=== PATIENT | female | born 1970 | race Caucasian/White ===

== ENCOUNTER 2019-08-28 14:19 | Emergency (ER) | payer OTHER ==
--- NOTE | 2019-08-28 14:52 | ED Physician Documentation ---
PD HPI LOWER EXT INJURY - Stated complaint Stated Complaint: RT FOOT INJ - Chief complaint Chief Complaint: Ext Problem - History obtained from History obtained from: Patient - History of Present Illness PD HPI LOW EXT INJURY LOCATION: Right, Foot Type of injury: Crush (Deck board) Where injury occurred: Home Timing - onset: How many weeks ago (2) Timing - duration: Weeks (2) Timing - details: Abrupt onset Pain level max: 5 Pain level now: 1 Improved by: Rest Worsened by: Moving, Palpating Associated symptoms: Numbness (She states that the area of the bruise feels numb.), Discolored (Bruising). No: Weakness, Tingling, Swelling Contributing factors: No: Anticoagulated Recently seen: Not recently seen Review of Systems Constitutional: denies: Fever Musculoskeletal: denies: Neck pain, Back pain Neurologic: denies: Head injury PD PAST MEDICAL HISTORY - Past Medical History Past Medical History: No - Past Surgical History Past Surgical History: No - Present Medications Home Medications: Ambulatory Orders Medication Instructions Recorded Confirmed Fluticasone [Flonase] 1 puffs INH DAILY 09/11/15 09/11/15 Loratadine [Claritin] 10 mg PO DAILY 09/11/15 09/11/15 - Allergies Allergies/Adverse Reactions: Allergies Allergy/AdvReac Type Severity Reaction Status Date / Time No Known Drug Allergies Allergy Verified 09/11/15 19:43 - Social History Does the pt smoke?: No Smoking Status: Never smoker Does the pt drink ETOH?: No Does the pt have substance abuse?: No - Immunizations Immunizations are current?: Yes PD ED PE NORMAL - Vitals Vital signs reviewed: Yes - General General: Alert and oriented X 3, No acute distress, Well developed/nourished - Derm Derm: Warm and dry - Extremities Extremities: Other (Mild ecchymosis in between the first and second MTP joints on the dorsum of the right foot. No tenderness over the entirety of the foot. No deformity. Neurovascularly intact. There is some pain with active range of motion of the great toe. Mild pain with passive range of motion of the toes.) - Neuro Neuro: Alert and oriented X 3 - Psych Psych: Normal mood, Normal affect Results - Vitals Vitals: Vital Signs - 24 hr 08/28/19 14:25 Temperature 36 C L Heart Rate 105 H Respiratory 18 Rate Blood Pressure 167/87 H O2 Saturation 100 Oxygen O2 Source Room air - Rads (name of study) Right foot x-ray Radiology: Prelim report reviewed, EMP read contemporaneously, See rad report (Normal x-ray) PD MEDICAL DECISION MAKING - ED course Complexity details: reviewed results, re-evaluated patient, considered differential, d/w patient ED course: Patient with a contusion of the foot. Normal x-ray. No evidence of fractures. Ambulating without difficulty. We will have her follow-up with her doctor as needed for further care. Patient counseled regarding signs and symptoms for which I believe and urgent re-evaluation would be necessary. Patient with good understanding of and agreement to plan and is comfortable going home at this time This document was made in part using voice recognition software. While efforts are made to proofread this document, sound alike and grammatical errors may occur. Departure - Departure Disposition: 01 Home, Self Care Clinical Impression: Foot contusion Qualifiers: Encounter type: initial encounter Laterality: right Qualified Code(s): S90.31XA - Contusion of right foot, initial encounter Condition: Good Instructions: ED Contusion Foot Follow-Up: your,doctor as needed [Other] Comments: Your x-ray does not show any acute abnormalities today. Follow-up with your doctor for further care. Return if you worsen.
--- NOTE | 2019-08-28 15:18 | XRAY Report ---
Reason: R foot crush injury 2 weeks ago Procedure Date: 08/28/2019 Accession Number: [id number] / [id number] Procedure: XR - Foot 3 View RT CPT Code: Final Report FULL RESULT: EXAM: RIGHT FOOT RADIOGRAPHY EXAM DATE: 08/28/2019 02:54 PM. CLINICAL HISTORY: Right foot crush injury 2 weeks ago, bruising and swelling. COMPARISON: None. TECHNIQUE: 3 views. FINDINGS: Bones: Normal. No fractures or bone lesions. Joints: Normal. No subluxations. Soft Tissues: Normal. No soft tissue swelling. IMPRESSION: Normal foot radiography. No fracture identified. RADIA
[2019-08-28 15:40] VITALS: BP 135/78
== END 2019-08-28 15:40 | disposition home or self-care (01) ==
LOC: ED 14:19
DX: S90.31XA Contusion of right foot, initial encounter (principal); X58.XXXA Exposure to other specified factors, initial encounter
CPT/HCPCS: 99283; 99284

== ENCOUNTER 2020-03-23 10:58 | Outpatient (CLI) | payer OTHER ==
--- NOTE | 2020-03-26 13:22 | Mammography Report ---
BILATERAL DIGITAL SCREENING MAMMOGRAM 3D/2D: 03/23/2020 CLINICAL: Routine screening. Comparison is made to exams dated: 08/30/2018 mammogram, 07/21/2017 ultrasound, and 07/21/2017 mammogram - [facility]. The tissue of both breasts is heterogeneously dense. This may lower th e sensitivity of mammography. There is a benign cyst in the right breast. No significant masses, calcifications, or other findings are seen in either breast. There has been no significant interval change. IMPRESSION: BENIGN There is no mammographic evidence of malignancy. A 1 year screening mammogram is recommended. This exam was interpreted at Station ID: [id number]. NOTE: For mammograms, a report in lay terms will be sent to the patient. Approximately 15% of breast malignancies will not be visualized mammographically. In the management of a palpable breast mass, a negative mammogram must not discourage biopsy of a clinically suspicious lesion. Electronically Signed By: Abhijeet Daniels M.D. ar/penrad:03/23/2020 12:00:40 ACR BI-RADS Category 2: Benign Finding(s) 3342F PARENCHYMAL PATTERN: (D) - The breast(s) demonstrate(s) heterogeneously dense fibroglandular james frias. BI-RADS CATEGORY: (2) - 2 RECOMMENDATION: (ANNUAL) - Recommend routine annual screening mammography. [id number] 1 year screening LATERALITY: (B)
== END 2020-03-23 10:59 | disposition home or self-care (01) ==
LOC: DI.N 10:58
PROVIDERS: ATTEND Obstetrics & Gynecology
DX: Z12.31 Encounter for screening mammogram for malignant neoplasm of breast (principal)

== ENCOUNTER 2021-02-06 19:52 | Emergency (ER) | payer OTHER ==
[2021-02-06 20:20] LABS: BASOPHILS # (AUTO) 0.1 10^3/uL (0.0-0.1); BASOPHILS % (AUTO) 0.9 %; EOSINOPHILS # (AUTO) 0.1 10^3/uL (0.0-0.7); EOSINOPHILS % (AUTO) 0.5 %; HGB - HEMOGLOBIN 13.4 g/dL (12.0-16.0); LYMPHOCYTES # (AUTO) 2.3 10^3/uL (1.5-3.5); LYMPHOCYTES % (AUTO) 19.9 %; MEAN CORPUSCULAR HEMOGLOBIN 29.1 pg (27.0-31.0); MEAN CORPUSCULAR HGB CONC 32.7 g/dL (32.0-36.0); MEAN CORPUSCULAR VOLUME 88.9 fL (81.0-99.0); MEAN PLATELET VOLUME 9.7 fL (7.9-10.8); MONOCYTES # (AUTO) 1.2 10^3/uL (0.0-1.0); MONOCYTES % (AUTO) 10.6 %; NEUTROPHILS # (AUTO) 7.9 10^3/uL (1.5-6.6); NEUTROPHILS % (AUTO) 67.8 %; PLT - PLATELET COUNT 411 10^3/uL (130-450); RED BLOOD COUNT 4.61 10^6/uL (4.20-5.40); RED CELL DISTRIBUTION WIDTH 11.9 % (12.0-15.0); WHITE BLOOD COUNT 11.7 x10^3/uL (4.8-10.8)
[2021-02-06 20:28] LABS: BILIRUBIN,URINE NEGATIVE (NEGATIVE); GLUCOSE, URINE (UA) NEGATIVE (NEGATIVE); KETONES,URINE (UA) TRACE mg/dL (NEGATIVE); LEUKOCYTE ESTERASE, URINE NEGATIVE (NEGATIVE); NITRITE,URINE NEGATIVE (NEGATIVE); OCCULT BLOOD,URINE NEGATIVE (NEGATIVE); PH,URINE 5.5 PH (5.0-7.5); PROTEIN,URINE NEGATIVE (NEGATIVE); UROBILINOGEN,URINE 0.2 (NORMAL) E.U./dL (NORMAL)
[2021-02-06 20:30] LABS: CLARITY,URINE CLEAR (CLEAR)
[2021-02-06 20:31] LABS: HCG UR QUAL NEGATIVE
[2021-02-06 20:33] LABS: ALBUMIN 4.7 g/dL (3.2-5.5); ALBUMIN/GLOBULIN RATIO 1.3 (1.0-2.2); BILIRUBIN,TOTAL 1.5 mg/dL (0.2-1.0); CALCIUM 9.4 mg/dL (8.5-10.3); CREATININE 0.8 mg/dL (0.4-1.0); POTASSIUM 3.7 mmol/L (3.5-5.0); TOTAL PROTEIN 8.2 g/dL (6.7-8.2)
[2021-02-06] MEDS ORDERED: SODIUM CHLORIDE 0.9% 1,000 ML IV STA (20:51)
[2021-02-06] MEDS ORDERED: KETOROLAC 15 MG/ML VIAL IVP STA (20:51)
[2021-02-06] MEDS ORDERED: ONDANSETRON 4 MG/2 ML VIAL IVP STA (20:51)
[2021-02-06] MEDS ORDERED: IOVERSOL 320 100 ML VIAL IVP ONE ×2 (21:13→21:29)
--- NOTE | 2021-02-06 21:58 | CT Report ---
PROCEDURE: Abdomen/Pelvis W INDICATIONS: RLQ pain, no abd surgeries CONTRAST: IV CONTRAST: Optiray 320 ml: 100 PO CONTRAST: *NO PO CONTRAST TECHNIQUE: After the administration of IV contrast, 5 mm thick sections acquired from the diaphragms to the symp hysis. 5 mm thick coronal and sagittal reformats were acquired. For radiation dose reduction, the f ollowing was used: automated exposure control, adjustment of mA and/or kV according to patient size. COMPARISON: None. FINDINGS: Image quality: Excellent. ABDOMEN: Lung bases: Lung bases are clear. Heart size is normal. Solid organs: Liver and spleen are normal in size and enhancement. Gallbladder is within normal wallace its Biliary system is non dilated. Pancreas enhances normally. No adrenal nodules. Kidneys demons trate normal size and enhancement, without hydronephrosis. Peritoneum and bowel: Bowel loops demonstrate normal wall thickness and caliber. Mild stool noted i n the right colon. No free fluid or air. Appendix is not definitely visualized. No free fluid or free air identified adjacent to the cecum. Nodes and vessels: No retroperitoneal or mesenteric adenopathy by size criteria. Aorta and inferior vena cava are normal in size. Miscellaneous: No ventral hernias. PELVIS: Genitourinary: Bladder wall thickness is normal. 1.9 cm right adnexal cyst 2.2 cm fibroid in the ant erior uterus. Miscellaneous: No inguinal hernias or adenopathy. Bones: No suspicious bony lesions. No vertebral body compression fractures. IMPRESSION: 1. Appendix not definitely visualized. No secondary signs of appendicitis such as free fluid or infla mmatory changes noted adjacent to the cecum. 2. Moderate fecal loading involving the right colon. 3. 1.9 cm right adnexal cyst. Reviewed by: Radha Valles MD, PhD on 02/06/2021 9:57 PM PDT Approved by: Radha Valles MD, PhD on 02/06/2021 9:57 PM PDT Station ID: [id number]
[2021-02-06] MEDS ORDERED: MORPHINE 2 MG/ML CARPUJECT IVP STA (22:13)
--- NOTE | 2021-02-06 23:01 | ED Physician Documentation ---
History of Present Illness - Stated complaint Stated Complaint: RT SIDE ABD PX - Chief complaint Chief Complaint: Abd Pain - Additonal information Additional information: 50yF with psh tubal ligation, no other psh, p/w RLQ abd pain since yesterday, gradual onset, a/w nausea but no vomiting and 4 watery episodes of diarrhea. no blood. nonradiating, constant, worse with movement and deep breathing, better with motrin. denies fevers, urinary sx. Review of Systems Ten Systems: 10 systems reviewed and negative Constitutional: denies: Fever, Chills GI: reports: Abdominal Pain, Nausea, Diarrhea. denies: Vomiting : denies: Dysuria PD PAST MEDICAL HISTORY - Past Medical History Cardiovascular: None Respiratory: None Neuro: None Endocrine/Autoimmune: None GI: None TOP CUTTER: Other : None HEENT: None Psych: None Musculoskeletal: Scoliosis Derm: None Other Past Medical History: heavy menstrual flow + cbad cramps - Past Surgical History Past Surgical History: Yes /TOP CUTTER: Tubal ligation Derm: Skin cancer surgery - Present Medications Home Medications: Ambulatory Orders Medication Instructions Recorded Confirmed No Known Home Medications 02/06/21 02/06/21 - Allergies Allergies/Adverse Reactions: Allergies Allergy/AdvReac Type Severity Reaction Status Date / Time No Known Drug Allergies Allergy Verified 02/06/21 20:05 - Social History Does the pt smoke?: No Smoking Status: Never smoker Does the pt drink ETOH?: No Does the pt have substance abuse?: No - Immunizations Immunizations are current?: Yes - POLST Patient has POLST: No PD ED PE NORMAL - Vitals Vital signs reviewed: Yes - General General: Alert and oriented X 3, No acute distress, Well developed/nourished - HEENT HEENT: Atraumatic, PERRL, EOMI - Neck Neck: Supple, no meningeal sign - Cardiac Cardiac: RRR - Respiratory Respiratory: No respiratory distress, Clear bilaterally - Abdomen Abdomen: Non tender, Non distended, Other (RLQ discomfort to palpation) - Back Back: No CVA TTP - Derm Derm: Normal color, Warm and dry - Extremities Extremities: No deformity - Neuro Neuro: Alert and oriented X 3 - Psych Psych: Normal mood, Normal affect Results - Vitals Vitals: Vital Signs - 24 hr 02/06/21 02/06/21 02/06/21 20:00 22:31 23:09 Temperature 36.3 C L 37.1 C Heart Rate 106 H 89 88 Respiratory 18 16 14 Rate Blood Pressure 164/84 H 135/68 H 129/75 O2 Saturation 99 100 99 Oxygen O2 Source Room air - Labs Labs: Laboratory Tests 02/06/21 02/06/21 02/06/21 20:15 20:15 20:16 WBC 11.7 H RBC 4.61 Hgb 13.4 Hct 41.0 MCV 88.9 MCH 29.1 MCHC 32.7 RDW 11.9 L Plt Count 411 MPV 9.7 Neut # (Auto) 7.9 H Lymph # (Auto) 2.3 Evangeline # (Auto) 1.2 H Eos # (Auto) 0.1 Baso # (Auto) 0.1 Absolute Nucleated RBC 0.00 Nucleated RBC % 0.0 Sodium Potassium Chloride Carbon Dioxide Anion Gap BUN Creatinine Estimated GFR (MDRD) Glucose Calcium Total Bilirubin AST ALT Alkaline Phosphatase Total Protein Albumin Globulin Albumin/Globulin Ratio Lipase Urine Color YELLOW Urine Clarity CLEAR Urine pH 5.5 Ur Specific [place] 1.020 Urine Protein NEGATIVE Urine Glucose (UA) NEGATIVE Urine Ketones TRACE Urine Occult Blood NEGATIVE Urine Nitrite NEGATIVE Urine Bilirubin NEGATIVE Urine Urobilinogen 0.2 (NORMAL) Ur Leukocyte Esterase NEGATIVE Ur Microscopic Review NOT INDICATED Urine Culture Comments NOT INDICATED Urine HCG, Qual NEGATIVE 02/06/21 20:16 WBC RBC Hgb Hct MCV MCH MCHC RDW Plt Count MPV Neut # (Auto) Lymph # (Auto) Evangeline # (Auto) Eos # (Auto) Baso # (Auto) Absolute Nucleated RBC Nucleated RBC % Sodium 138 Potassium 3.7 Chloride 104 Carbon Dioxide 24 Anion Gap 10.0 BUN 13 Creatinine 0.8 Estimated GFR (MDRD) 76 L Glucose 107 H Calcium 9.4 Total Bilirubin 1.5 H AST 15 ALT 14 Alkaline Phosphatase 39 L Total Protein 8.2 Albumin 4.7 Globulin 3.5 Albumin/Globulin Ratio 1.3 Lipase 47 Urine Color Urine Clarity Urine pH Ur Specific [place] Urine Protein Urine Glucose (UA) Urine Ketones Urine Occult Blood Urine Nitrite Urine Bilirubin Urine Urobilinogen Ur Leukocyte Esterase Ur Microscopic Review Urine Culture Comments Urine HCG, Qual PD MEDICAL DECISION MAKING - ED course ED course: Pain completely resolved s/p 4mg morphine. d/w patient that CT shows no secondary signs of appendicitis and I discussed warning signs for return. 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 u/s canceled per patient request. strict return precautions given. Departure - Departure Disposition: 01 Home, Self Care Clinical Impression: Abdominal pain, Ovarian cyst Condition: Good Instructions: Abdominal Pain Follow-Up: Yue Rousseau MD [Provider Admit Priv/Credential] - Comments: You are seen in the emergency department for abdominal pain. Your CT did not show the appendix but it also did not show any secondary signs of appendicitis ( meaning, no inflammation in the area around the appendix, no fluid buildup). Your hemoglobin, a test for anemia, was in a normal range. Your blood work did not show any other emergent findings. Please follow-up with your CREATIVE ART THERAPIST this week. Take Motrin as needed for pain and return to the emergency department if you have any new or worsening symptoms or other concerns. Discharge Date/Time: 02/06/21 23:11
[2021-02-06 23:11] VITALS: BP 129/75
== END 2021-02-06 23:11 | disposition home or self-care (01) ==
LOC: ED 19:52
DX: R10.31 Right lower quadrant pain (principal); N83.201 Unspecified ovarian cyst, right side; R11.0 Nausea; R19.7 Diarrhea, unspecified
CPT/HCPCS: 36415; 74177; 80053; 81003; 81025; 83690; 85025; 96374; 96375; 99283; 99284; Q9967; 81001; 87086

== ENCOUNTER 2023-08-01 08:48 | Outpatient (CLI) | payer OTHER ==
--- NOTE | 2023-08-07 14:56 | MRI Report ---
Elbow LT WO CLINICAL HISTORY: 52 years of age, Female, L ELBOW PAIN. COMPARISON: None. Technique: Multisequence, multiplanar MRI of the left elbow was performed without contrast. FINDINGS: Tendons: The biceps tendon is normal. Brachialis tendon is normal. The triceps tendon is normal. The re is mild olecranon bursitis. Medial structures: Common flexor tendon is normal. The ulnar collateral ligament is normal. Lateral structures: Common extensor tendon is normal.The lateral collateral ligament, and the lateral ulnar collateral ligament are normal. Bones: Normal bone marrow. No edema or acute fracture. Cartilage is normal. Nerves: Ulnar nerve is unremarkable. No accessory epitrochlearis muscle. Others: Small elbow effusion. IMPRESSION: Mild olecranon bursitis. Reviewed by: Renée Javier MD on 08/03/2023 9:54 PM PDT Approved by: Renée Javier MD on 08/03/2023 9:54 PM PDT Station ID: [id number]
== END 2023-08-01 08:49 | disposition home or self-care (01) ==
LOC: DI 08:48
PROVIDERS: ATTEND Family Medicine
DX: M70.22 Olecranon bursitis, left elbow (principal)